=== PATIENT | female | born 1965 | race African-American/Black ===

== ENCOUNTER 2019-05-07 19:56 | Emergency (ER) | payer OTHER ==
[~2019-05-07] VITALS: Ht 165.1 cm; Wt 85.3 kg
[2019-05-07 19:59] VITALS: Ht 165.1 cm; Wt 85.3 kg
[2019-05-07 20:59] LABS: BASOPHIL % 0.7 % (0-2); PLATELET COUNT 160 x10^3mcL (130-400); RED CELL DISTRIBUTION WIDTH 13.3 % (11.5-14.5)
[2019-05-07 21:09] LABS: CALCIUM 9.3 mg/dL (8.5-10.1); CARBON DIOXIDE 29.9 mmol/L (21-32); CHLORIDE SERUM 109 mmol/L (98-107); GFR1 > 60 mL/min; GLUCOSE SERUM 102 mg/dL (74-106); POTASSIUM SERUM 3.6 mmol/L (3.5-5.1); SODIUM SERUM 146 mmol/L (136-145)
[2019-05-07 21:14] LABS: ALBUMIN 4.2 g/dL (3.4-5.0); ALKALINE PHOSPHATASE 63 U/L (46-116); ALT/SGPT 15 U/L (14-59); AST/SGOT 17 U/L (15-37); BILIRUBIN TOTAL 0.35 mg/dL (0.20-1.00)
[2019-05-07 21:21] LABS: TOTAL PROTEIN, SERUM 8.6 g/dL (6.4-8.2)
[2019-05-07 23:42] VITALS: BP 139/80
== END 2019-05-07 23:43 | disposition home or self-care (01) ==
LOC: ED 19:56
PROVIDERS: Emergency Medicine
DX: R51 Headache (principal); I10 Essential (primary) hypertension; M79.7 Fibromyalgia; Z88.2 Allergy status to sulfonamides
CPT/HCPCS: J1885; J2765; J7030